=== PATIENT | female | born 1975 | race Two or more races ===

== ENCOUNTER → 2020-03-12 | Outpatient (CLI) | payer SELFPAY | LOC: OD 15:08 | PROVIDERS: ATTEND Otolaryngology | DX: J34.89 Other specified disorders of nose and nasal sinuses (principal) | CPT/HCPCS: 36415; 82785; 86003 ==

== ENCOUNTER → 2020-05-21 | Outpatient (CLI) | payer OTHER ==
--- NOTE | 2020-05-23 17:25 | RADIOLOGY REPORT (SQ) ---
EXAM DESCRIPTION: CT FACIAL AREA COMBO IMAGES COMPLETED DATE/TIME: 05/21/2020 8:52 am REASON FOR STUDY: EPISTAXIS R04.0 EPISTAXIS COMPARISON: None. TECHNIQUE: Post contrast images through the facial bones and orbits windowed for bone and soft tissu e. Additional coronal and sagittal reconstructed images reviewed. All images stored on PACS. All CT scanners at this facility use dose modulation, iterative reconstruction, and/or weight based d osing when appropriate to reduce radiation dose to as low as reasonably achievable (ALARA). [facility]: Dose Right [facility]: CareDose [facility]: Dose Right [facility]: Teradose 4D [facility]: [email or web address] CONTRAST TYPE AND DOSE: contrast/concentration: Isovue 350.00 mmol/ml; Total Contrast Delivered: 80. 0 ml; Total Saline Delivered: 50.0 ml RENAL FUNCTION: None required. The patient is less than 50 years old. RADIATION DOSE: . LIMITATIONS: None. FINDINGS: FACIAL BONES: No fracture or bone lesion. ORBITS: Intact. No fracture. Symmetric intact globes and retroorbital soft tissues. PARANASAL SINUSES: There is a partially calcified mass occupying the left nasal passages with associa yvonne opacification of the left frontal sinus and multiple left ethmoid air cells. The left maxillary sinus appears diminutive and hyperostotic with complete opacification, consistent with chronic sinusi tis. The left nasal mass demonstrates no postcontrast enhancement. The right ostiomeatal unit and fr ontoethmoid/sphenoethmoid recesses remain patent. The left sphenoethmoid recess likewise remains pat ent. The mastoid air cells are clear and evenly aerated SOFT TISSUES: No mass or edema. No abnormal enhancement. INFERIOR BRAIN: Limited view. No acute findings. OTHER: No other significant finding. IMPRESSION: Partially calcified left nasal mass likely represents a large polyp with associated find ings of chronic left maxillary, ethmoid, and frontal sinusitis. TECHNICAL DOCUMENTATION: JOB ID: [id number] Quality ID # [id number]: Final reports with documentation of one or more dose reduction techniques (e.g., Au tomated exposure control, adjustment of the mA and/or kV according to patient size, use of iterative reconstruction technique) 2010 [employer]- All Rights Reserved Reading location - IP/workstation name: [email or web address]
== END ==
LOC: RAD 07:58
PROVIDERS: ATTEND Otolaryngology
DX: J34.89 Other specified disorders of nose and nasal sinuses (principal)
CPT/HCPCS: 70488